=== PATIENT | female | born 1935 | race Caucasian/White ===

== ENCOUNTER 2018-09-26 07:46 | Inpatient (IN) ==
[2018-09-19 12:21] LABS: Basophils # (Auto) 0 K/mcL (0.0-0.3); Basophils % (Auto) 0.5 % (0.0-2.0); Eosinophils # (Auto) 0.1 K/mcL (0.0-0.7); Eosinophils % (Auto) 1.3 % (0.0-7.0); Granulocytes % (Auto) 62.2 % (38.0-78.0); Lymphocytes # (Auto) 1.7 K/mcL (1.5-4.8); Lymphocytes % (Auto) 27.9 % (15.5-49.0); Mean Cell Volume 93.8 fL (80.0-100.0); Mean Corpuscular HGB Conc 33.1 g/dL (31.0-36.0); Monocytes # (Auto) 0.5 K/mcL (0.1-0.9); Monocytes % (Auto) 8.1 % (1.0-12.0); Platelet Count 315 K/mcL (140-440); RBC 4.52 M/mcL (4.00-5.20); Red Cell Distribution Width 12.6 % (11.5-14.5)
[2018-09-19 13:02] LABS: Blood Urea Nitrogen 18 mg/dl (8-23)
[2018-09-19 13:15] LABS: Appearance,Urine CLEAR; Bacteria,Urine 0 /hpf (0); Bilirubin,Urine NEG (NEG); Color,Urine COLORLESS; Glucose,Urine (UA) NEGATIVE (NEG); Leukocyte Esterase,Urine NEG /uL (NEG); Protein,Urine NEG (NEG); Specific Gravity,Urine 1.005 (1.000-1.035); Urine Blood 0.03 mg/dL (<0.03); Urine Hyaline Cast 1 /lpf (0-2); Urine RBC 0 /hpf (0-1); Urine Squamous Epithelial Cell 0 /hpf (0-4); Urine WBC 0 /hpf (0-4); Urobilinogen,Urine NEG (NEG)
[~2018-09-26 07:46] MED LIST: 0.9 % SODIUM CHLORIDE 9 ML, KETOROLAC 30 MG, ROPIVACAINE HCL/PF 49.5 ML, EPINEPHrine 0.... IJ SCH; CELECOXIB 200 MG CAPSULE PO SCH; PREGABALIN 75 MG CAPSULE PO SCH; ceFAZolin 2 GM in DEXTROSE 5% IN WATER 50 ML IV SCH; oxyCODONE 10 MG TAB.ER.12H PO SCH
[2018-09-26] MEDS ORDERED: GENTAMICIN SULFATE 800 MG/20 ML VIAL IR ONE (12:08)
[2018-09-26] MEDS ORDERED: ALBUTEROL SULFATE 1 PUFF INHALER IH PRN (14:56)
--- NOTE | 2018-09-26 14:56 | Brief Operative Note ---
Date of procedure: 09/26/18 Pre-op diagnosis: left knee osteoarthritis Post-op diagnosis: same Procedure: left tka Grafts/Implants: Yes Anesthesia: spinal Complications: none Surgeon: Constantin Brunson Certified Health Education Specialist: Paty Downs Tourniquet Time (Minutes): 53 Specimens Removed/Pathology: none sent Condition: stable Disposition: PACU
[2018-09-26] MEDS ORDERED: ONDANSETRON 4 MG ODT TABLET SL PRN (14:57)
[2018-09-26] MEDS ORDERED: TRANEXAMIC ACID 1,000 MG/10 ML VIAL IV SCH (14:57)
[2018-09-26] MEDS ORDERED: MAGNESIUM HYDROXIDE 30 ML ORAL.SUSP PO PRN (14:57)
[2018-09-26] MEDS ORDERED: FLEETS ADULT ENEMA PR PRN (14:57)
[2018-09-26] MEDS ORDERED: HYDROcodone/APAP 10/325MG TABLET PO PRN (14:57)
[2018-09-26] MEDS ORDERED: POLYETHYLENE GLYCOL 3350 17 GM PACKET PO PRN (14:57)
[2018-09-26] MEDS ORDERED: ONDANSETRON 4 MG/2 ML VIAL IV PRN ×2 (14:57→15:16)
[2018-09-26] MEDS ORDERED: BENZOCAINE/MENTHOL 1 LOZENGE PO PRN (14:57)
[2018-09-26] MEDS ORDERED: BISACODYL 10 MG SUPP.RECT PR PRN (14:57)
[2018-09-26] MEDS ORDERED: NALOXONE HCL 0.4 MG/ML VIAL IV PRN (15:16)
[2018-09-26] MEDS ORDERED: fentaNYL 100 MCG/2 ML VIAL IV PRN (15:16)
[2018-09-26] MEDS ORDERED: METOPROLOL TARTRATE 5 MG/5 ML VIAL IV PRN (15:16)
[2018-09-26] MEDS ORDERED: ACETAMINOPHEN 650 MG/65 ML BOTTLE IV ONE (15:16)
[2018-09-26] MEDS ORDERED: FLUMAZENIL 0.1 MG/ML ML IV PRN (15:16)
[2018-09-26] MEDS ORDERED: ATROPINE SULFATE 0.4 MG/ML VIAL IV PRN (15:16)
[2018-09-26] MEDS ORDERED: IPRATROPIUM/ALBUTEROL 3 ML AMPUL.NEB NEB PRN (15:16)
[2018-09-26] MEDS ORDERED: ePHEDrine 50 MG/ML AMPUL IV PRN (15:16)
[2018-09-26] MEDS ORDERED: diphenhydrAMINE 50 MG/ML VIAL IV PRN (15:16)
--- NOTE | 2018-09-26 15:19 | Operative Note ---
DATE OF OPERATION: 09/26/2018 PREOPERATIVE DIAGNOSIS: Degenerative joint disease, left knee. POSTOPERATIVE DIAGNOSIS: Degenerative joint disease, left knee. PROCEDURE: Left total knee arthroplasty. SURGEON: Matheus Brunson M.D. FURNITURE SALES CONSULTANT SURGEON: Paty Downs PA-C. ANESTHESIA: Spinal with LMA assist. ESTIMATED BLOOD LOSS: 150 mL. COMPLICATIONS: None noted. SPECIMENS REMOVED: None. DRAINS: None. TOURNIQUET TIME: 52 minutes at 300 mmHg. IMPLANTS: DePuy CMW2 bone cement 20 grams x4; DePuy Attune tibial base fixed bearing size 3, cemented; DePuy Attune femoral posterior stabilized size 5 left narrow; DePuy Attune tibial insert fixed bearing posterior stabilized size 5, 6 mm AOX; DePuy Attune patella medialized dome 35 mm cemented AOX. INDICATIONS: The patient has had a long-standing history of worsening pain in the knee that has failed conservative treatment. Radiographs have confirmed advanced degenerative joint disease. After a long discussion about treatment options, the patient elected to proceed with a knee arthroplasty. The risks and benefits were discussed with the patient in detail including, but not limited to, the risks of anesthesia, problems with the heart or lungs related to anesthesia, infection, compromise or injury to the nerves and blood vessels, deep venous thrombosis, pulmonary embolism, pneumonia, continued pain after surgery, worsening pain or symptoms after surgery, swelling, loss of motion, instability, leg length discrepancy, and need for repeat surgery. DESCRIPTION OF PROCEDURE: The patient was seen in the pre-anesthesia waiting room where all questions were answered and the correct side and site were identified and marked. The patient was transferred to the operating room and administered the anesthetic and given pre-operative antibiotics. A time-out was then called. The extremity was prepped and draped, exsanguinated, and the tourniquet was inflated to 300 mmHg. A midline skin incision was then made with a standard medial parapatellar arthrotomy. Debridement of the menisci, ACL, and PCL was performed followed by balancing releases in the medial lateral plane. We then established intramedullary access to both the femur and tibia in a standard fashion. The femoral guide mami was initially placed with the distal femoral guide, pinned into place, and the distal femoral cut was performed and checked with a flat plate. We then turned our attention to the tibia. The intramedullary guide was placed with the proximal tibial cutting block. The block was appropriately positioned off the affected side, varus and valgus was checked with the extra-medullary guide, and the block was pinned into place. The proximal tibial cut was performed and the tibia was prepared for the tibial implant with appropriate rotation. The tibia, femur, and posterior compartment were debrided of osteophytes, loose bodies, and meniscal fragments We then used the gap balancing technique to balance extension with the first two cuts and good balancing was obtained with a 10 millimeter gap block. We turned our attention back to the femur and used the referencing block and implant to size appropriately. Using the gap balancing technique for the flexion space we set our rotation of the femur off the tibial cut. Anesthesia gave the patient 1 gram of Tranexamic Acid via an intravenous route. We placed the 4 in 1 cutting block and made anterior, posterior, and chamfer cuts. Box plasty cuts were then made in a standard fashion for the posterior stabilized prosthesis. We then completed osteophyte release and posterior capsule release from the posterior compartment. Trials were placed and we chose the polyethylene insert thickness that provided the best stability in all planes. With the trials in place, we did a measured resection for a resurfacing patella. We sized the patella and placed the patella trial and performed a lateral facetectomy with the saw and rongeur. Good tracking was obtained. We removed all trials, irrigated and dried all cut surfaces. We cemented the components into place including tibia, femur and patella. We placed a trial liner and held the knee in full extension with the patella compressed while the cement cured. We then removed all excess cement and placed the final polyethylene tibiofemoral component. Irrigation with 3 liters of antibiotic saline was then performed using jet-lavage. We let the tourniquet down and coagulated bleeding vessels. We injected a 100 cubic centimeter volume including Ropivacaine 49.25 cubic centimeters at 5 milligrams per cubic centimeter, Ketorolac 30 milligrams, and Epinephrine 0.5 milligrams into 100 cubic centimeters volume of normal saline. We closed the retinaculum with #2 Stratafix and 0 Vicryl. We closed the subcutaneous tissue and skin in layers out to Dermabond on the skin. A sterile pressure dressing was applied. All needle and sponge counts were correct. The patient was transferred to the recovery room in stable condition. GINETTE:gonzalo Job ID: [id number] Doc ID: [id number] Matheus Brunson MD
[2018-09-26] MEDS ORDERED: LACTATED RINGERS 1,000 ML IV SCH (15:30)
[2018-09-26] MEDS ORDERED: NITROGLYCERIN 1 GM OINT.TOP TD ONE (15:30)
--- NOTE | 2018-09-26 16:05 | General Surgery Progress Note ---
Subjective Patient reports: no new complaints Narrative: Note initiated : 09/26/18 at 4:01 pm Service Date, if different from initiated Date: [] Patient: Zhane Fernandes 82 y/o F admitted on 09/26/18 for Left Total Knee Arthroplasty. Chief Complaint: [] Pt arrives to pacu and when EKG monitors applied, significant ST depression noted. Ordered 12lead which showed new ST depression. Nitro paste applied and beta blockers given, Troponin ordered. Pt still too sleepy to assess any chest pain. Dr Brunson notified. Dr Chavez contacted as we were wanting her to be followed by hospitalist. he would appreciate a negative troponin before accepting her. Will wait in PACU for that to come back. 1600 pt awake with no complaints of chest pain and will have her chew an 81mg ASA tablet. Objective Temp Pulse Resp BP Pulse Ox 97.0 F 77 12 117/63 99 09/26/18 15:40 09/26/18 15:40 09/26/18 15:40 09/26/18 15:40 09/26/18 15:40 - Additional Data Intake & Output - Last 24 hours: Intake & Output 09/24/18 09/25/18 09/26/18 09/27/18 05:59 05:59 05:59 05:59 Intake Total 1500 Balance 1500 Weight 100 lb 6.4 oz - Labs 09/19/18 09:15 09/19/18 09:15 Assessment and Plan - Time Spent With Patient Total time spent is greater than 50% in coordination of care (as documented) at patient's floor/unit and/or counseling patient:
[2018-09-26] MEDS ORDERED: ASPIRIN 81 MG TAB.CHEW CHEWED ONE ×2 (16:11→18:15)
--- NOTE | 2018-09-26 16:55 | XRay Report ---
CLINICAL INFORMATION: Post-Op Total Knee COMPARISON: None. FINDINGS: Total knee prostheses is anatomically aligned. No osseous abnormality. Soft tissue swelling and gas - as expected IMPRESSION: Negative Interpreted and Authenticated by: Constantin Anderson 09/26/18
--- NOTE | 2018-09-26 17:56 | Internal Medicine Consult Note ---
Medical - CN: HPI - Data of Consult Consult date: 09/26/18 Primary Care Provider: Lanie Martin - Consult Narrative History of present illness: Ms. Fernandes is a 82 year old F Who presented to the hospital for elective left total knee arthroplasty for s evere osteoporosis and failed outpatient treatment. Postoperatively in the PACU patient was noted to have ST changes and an EKG was obtained. She was still sedated at that time. EKG showed anteriolateral ST depression. When she was woken up she was evaluated and it was remained stable and did not have any chest pain. A follow-up EKG showed resolution of those ischemic changes. Troponin which was ordered was unremarkable. Going through the intraoperative chart her blood pressures were pretty stable throughout, however there was one episode of 80/40. Heart rate is 70s but has visiting with her. She is resting comfortably in the MedSurg unit. We will is for her to telemetry monitoring. She denies any heart history although she does admit that her mother of [place] at 75, her father had CHF. She does date her lipids run a little high and that she has been on Lipitor in the past several decades ago but was intolerant to it. She denies trying any other statins and has not been on any other cholesterol medication since then. I discussed with her the option of trying alternative statins as she may not have a reaction to others or a different dose. She did receive aspirin in PACU. Patient denies any pains or complaints at this time no chest pain shortness of breath. Review of Systems: Pertinent positives as above. Denies headache/fever/chills/nausea/vomiting/chest or abdominal pain/cough/dyspnea/diarrhea. Remaining 10 point review of systems reviewed negative CC: Constantin Brunson Medical - CN: PMH Medical history: Past medical history: Asthma Hypertension History of Schatzki's ring Hyperlipidemia was on Lipitor 10-20 years ago but was intolerant to it and has not tried any other statins or any other cholesterol medication Past surgical history: Eye surgery and left total knee arthroplasty Family history: Mother of an [place] at 75 and father had CHF Social history: patient denies tobacco overusing Occasional alcohol Lives by herself Medical - CN: Meds Home Medications Medication Instructions Recorded Confirmed Type Irbesartan [Avapro] 300 mg PO DAILY 07/29/15 09/26/18 History Albuterol Sulfate [Proair Hfa] 8.5 gm IH Q4HP PRN 09/26/18 09/26/18 History Carboxymethylcellulose Sodium 1 - 2 drp BOTH EYES PRN PRN 09/26/18 09/26/18 History [Refresh Tears] Allergies Allergy/AdvReac Type Severity Reaction Status Date / Time hydrocodone AdvReac Intermediate Vomiting Verified 09/19/18 08:58 Bzcgrgc-Ljj-Vya Reductase AdvReac Intermediate Joint Pain Verified 09/19/18 08:59 Inhibitor Medical - CN: Exam - Constitutional Vitals: Temp Pulse Resp BP Pulse Ox 97.0 F 73 16 123/91 98 09/26/18 16:55 09/26/18 16:55 09/26/18 16:55 09/26/18 16:55 09/26/18 16:55 Exam: General: Alert, Awake, No acute Distress Eyes/N/T: EOMI, PEERL, Head/Neck: neck supple, normocephalic atraumatic CV: RRR, No murmurs, normal s1/s2 Pulm: Clear b/l, no wheezing/rhonchi/rales Abd: soft, nontender, +BS x4 Ext: no clubbing/cyanosis/edema to right leg, left leg and brace and dressings in place Neuro: Alert, no focal deficits, moves all extremities, CN 2-12 grossly intact, symmetrical strength b/l upper/lower, sensations intact b/l upper/lower Skin: warm/dry Medical - CN: Result - Labs CBC & Chem 7: 09/19/18 09:15 09/19/18 09:15 Labs: Cardiac Enzymes 09/26/18 Range/Units 15:45 Troponin T < 0.01 (0-0.03) ng/ml - Impressions Postoperative EKG with anterior lateral ST depression with a follow-up EKG with resolution. Medical - CN: A/P - Narrative A/P Narrative: A: *Ischemic EKG changes postoperatively: 2/2 demand ischemia from stress of surgery and brief episode of hypotension intraoperatively -1st trop negative -EKG changes resolved on f/u EKG *HLD: Was on Lipitor 10-20 years ago but was intolerant, has not tried any other statins or any other cholesterol medications since *HTN: On irbesartan *Asthma: Uses home inhalers as needed *OA s/p Left TKA (09/26): * P: -cont ASA -will start hydrophilic Pravastatin as least likely to cause mylagia's -check lipid panel -f/u CE's -monitor on tele -check chemistry panel -PT/OT -ppx: ASA bid per Orth O protocol
[2018-09-26 18:12] LABS: ALT/SGPT 15 U/l (0-40); Albumin 3.5 gm/dL (3.2-5.2); Albumin/Globulin Ratio 1.3 (1.0-2.3); Alkaline Phosphatase 72 U/L (39-117); Bilirubin,Direct < 0.2 mg/dL (0.0-0.3); Blood Urea Nitrogen 11 mg/dl (8-23); Gamma Glutamyl Transpeptidase 12 U/L (5-36); HDL Cholesterol 59 mg/dl (>40); LDL Cholesterol,Calculated 106 mg/dl (SEE CHART); Uric Acid 5.8 mg/dL (2.5-8.0)
[2018-09-26] MEDS: 0.9 % SODIUM CHLORIDE 1,000 ML IV SCH ×2 (19:50→23:50)
[2018-09-26] MEDS: KETOROLAC 15 MG/ML VIAL IV SCH (20:05)
[2018-09-26] MEDS ORDERED: PRAVASTATIN 20 MG TABLET PO SCH (21:00)
[2018-09-26] MEDS ORDERED: SIMVASTATIN 10 MG TABLET PO SCH (21:00)
[2018-09-26] MEDS: SENNOSIDES 1 TABLET PO SCH (21:46)
[2018-09-26] MEDS: DOCUSATE SODIUM 100 MG CAPSULE PO SCH (21:46)
[2018-09-26] MEDS: ceFAZolin 1 GM VIAL IV SCH (21:47)
[2018-09-26] MEDS: 0.9 % SODIUM CHLORIDE 10 ML SYRINGE IV SCH (21:54)
[2018-09-26] MEDS: ASPIRIN 325 MG ENTERIC COATED TABLET PO SCH (21:54)
[2018-09-27] MEDS: KETOROLAC 15 MG/ML VIAL IV SCH ×4 (01:05→17:47)
[2018-09-27] MEDS: ceFAZolin 1 GM VIAL IV SCH (04:35)
[2018-09-27 05:58] LABS: Basophils # (Auto) 0 K/mcL (0.0-0.3); Basophils % (Auto) 0 % (0.0-2.0); Eosinophils # (Auto) 0 K/mcL (0.0-0.7); Eosinophils % (Auto) 0 % (0.0-7.0); Granulocytes % (Auto) 88.9 % (38.0-78.0); Lymphocytes # (Auto) 0.8 K/mcL (1.5-4.8); Lymphocytes % (Auto) 6.4 % (15.5-49.0); Mean Corpuscular HGB Conc 32.7 g/dL (31.0-36.0); Monocytes # (Auto) 0.6 K/mcL (0.1-0.9); Monocytes % (Auto) 4.7 % (1.0-12.0); Platelet Count 294 K/mcL (140-440); RBC 3.62 M/mcL (4.00-5.20); Red Cell Distribution Width 12.7 % (11.5-14.5)
[2018-09-27] MEDS: 0.9 % SODIUM CHLORIDE 10 ML SYRINGE IV SCH ×3 (06:05→20:33)
[2018-09-27 06:11] LABS: ALT/SGPT 17 U/l (0-40); Albumin 3.3 gm/dL (3.2-5.2); Albumin/Globulin Ratio 1.2 (1.0-2.3); Alkaline Phosphatase 68 U/L (39-117); Bilirubin,Direct < 0.2 mg/dL (0.0-0.3); Blood Urea Nitrogen 14 mg/dl (8-23); Gamma Glutamyl Transpeptidase 11 U/L (5-36); Uric Acid 5.6 mg/dL (2.5-8.0)
--- NOTE | 2018-09-27 07:00 | Orthopedic Progress Note ---
Subjective Patient information: Note initiated : 09/27/18 at 6:58 am Service Date, if different from initiated Date: [] Patient: Zhane Fernandes 82 y/o F admitted on 09/26/18 for Left Total Knee Arthroplasty. Chief Complaint: [POD #1 s/p left TKA Doing well this morning, reports no pain. Denies CP, SOB, numbness, tingling or calf pain. Post surgery the patient developed ST changes on EKG but was troponin negative. She has no pertinent cardiac history and has no symptoms. ] Objective Vital signs: Vital Signs Temp Pulse Resp BP BP Pulse Ox 09/27/18 04:33 97.4 F 85 16 118/69 92 09/27/18 00:09 96.7 F L 79 16 121/72 96 09/26/18 19:10 74 150/88 97 09/26/18 18:57 97 09/26/18 18:40 74 148/84 96 09/26/18 18:11 76 139/86 96 09/26/18 17:55 75 150/85 95 09/26/18 17:41 76 142/81 95 09/26/18 17:25 75 153/86 97 09/26/18 17:10 76 148/88 94 09/26/18 16:55 97.0 F 73 16 123/91 98 09/26/18 16:40 73 18 135/69 98 09/26/18 16:25 76 20 131/99 100 09/26/18 16:10 97.1 F 69 11 L 123/61 100 09/26/18 15:55 97.0 F 68 19 122/60 100 09/26/18 15:40 97.0 F 77 12 117/63 99 09/26/18 15:25 97.2 F 73 13 117/83 98 09/26/18 15:20 89 19 118/62 100 09/26/18 15:15 92 H 19 114/60 100 09/26/18 15:10 97.0 F 90 18 111/58 100 09/26/18 07:51 98.3 F 101 H 16 146/88 98 Intake and Output 09/26/18 09/27/18 09/27/18 21:59 05:59 13:59 Intake Total 1550 300 Output Total 675 450 Balance 875 -150 Intake: Oral 300 IV - Manual Only 1550 Output: Urine Catheter Amount 675 Void Amount 450 Other: Urine Appearance Clear Clear Urine Color Dark Yellow Pale # Voids 1 Weight 112 lb Intake & Output: Intake & Output 09/26/18 09/27/18 09/27/18 21:59 05:59 13:59 Intake Total 1550 300 Output Total 675 450 Balance 875 -150 Weight 112 lb Intake: Oral 300 IV - Manual Only 1550 Output: Urine Catheter Amount 675 Void Amount 450 Other: Urine Appearance Clear Clear Urine Color Dark Yellow Pale # Voids 1 Incision: Yes healing, No draining, No red, No swollen, No inflamed, Yes clean and dry Incision clean and dry: Yes Dressing: Yes clean, Yes dry, Yes intact Weight bearing status: as tolerated Neurological exam IM: Yes alert, Yes oriented X3, Yes motor sensory intact, Yes neurovascular intact Extremities exam IM: Yes Foot pink and warm, Yes neurovascular intact - Periperhal Pulses Peripheral pulses: 2+: dorsalis pedis (L), dorsalis pedis (R), posterior tibialis (L), posterior tibialis (R) - Diagnostic Results Knee x-ray: image reviewed - Labs CBC & BMP: 09/27/18 04:15 09/27/18 04:15 Labs: Orthopedic Labs 09/19/18 09:15 PT 13.1 INR 1.0 09/27/18 09/19/18 04:15 09:15 Hgb 11.2 L 14.1 Hct 34.4 L 42.4 Assessment and Plan (1) Knee osteoarthritis POD #1 s/p left TKA: -d/c planning to SNF on Tuesday -WBAT -dermabond -october shower on 09/28/18 -pain control -ASA 325mg BID x 4 weeks -PT Status: Acute
--- NOTE | 2018-09-27 08:24 | Internal Med Progress Note ---
Medical - PN: Subj Patient information: Note initiated : 09/27/18 at 8:21 am Service Date, if different from initiated Date: [] Patient: Zhane Fernandes 82 y/o F admitted on 09/26/18 for Left Total Knee Arthroplasty. Chief Complaint: [] Interval history: Ms. Fernandes is a 82 year old F Who presented to the hospital for elective left total knee arthroplasty for severe osteoporosis and failed outpatient treatment. Postoperatively in the PACU patient was noted to have ST changes and an EKG was obtained. She was still sedated at that time. EKG showed anteriolateral ST depression. When she was woken up she was evaluated and it was remained stable and did not have any chest pain. A follow-up EKG showed resolution of those ischemic changes. Troponin which was ordered was unremarkable. Going through the intraoperative chart her blood pressures were pretty stable throughout, however there was one episode of 80/40. Heart rate is 70s but has visiting with her. She is resting comfortably in the MedSurg unit. We will is for her to telemetry monitoring. She denies any heart history although she does admit that her mother of [place] at 75, her father had CHF. She does date her lipids run a little high and that she has been on Lipitor in the past several decades ago but was intolerant to it. She denies trying any other statins and has not been on any other cholesterol medication since then. I discussed with her the option of trying alternative statins as she may not have a reaction to others or a different dose. She did receive aspirin in PACU. Patient denies any pains or complaints at this time no chest pain shortness of breath. 09/27 Slept well. No chest pain. No new complaints. Review of Systems: denies headache/fever/chills/nausea/vomiting/chest or abdominal pain/cough/dyspn ea/diarrhea. Otherwise see above. - Constitutional Vitals: Vital Signs Temp Pulse Resp BP Pulse Ox 97.4 F 75 16 118/69 92 09/27/18 04:33 09/27/18 07:00 09/27/18 04:33 09/27/18 04:33 09/27/18 04:33 Period Temp Pulse Resp BP Sys/Gary Pulse Ox Last 24 Hr 96.7 F-97.4 F 68-92 11-20 111-153/58-99 92-100 Intake and Output 09/26/18 09/27/18 09/27/18 21:59 05:59 13:59 Intake Total 1550 300 Output Total 675 450 Balance 875 -150 Weight 50.802 kg Intake & Output: Intake & Output 09/26/18 09/27/18 09/27/18 21:59 05:59 13:59 Intake Total 1550 300 Output Total 675 450 Balance 875 -150 Weight 50.802 kg Intake: Oral 300 IV - Manual Only 1550 Output: Urine Catheter Amount 675 Void Amount 450 Other: Urine Appearance Clear Clear Urine Color Dark Yellow Pale # Voids 1 Exam: General: Alert, Awake, No acute Distress Eyes/N/T: EOMI, Head/Neck: neck supple, CV: RRR, No murmurs, Pulm: Clear b/l, no wheezing/rhonchi/rales Abd: soft, nontender, +BS x4 Ext: no clubbing/cyanosis/edema to right leg, left leg and brace and dressings in place Neuro: Alert, no focal deficits, moves all extremities, Skin: warm/dry Medical - PN: Obj Da - Labs CBC & Chem 7: 09/27/18 04:15 09/27/18 04:15 Labs: Abnormal Lab Results 09/27/18 09/27/18 09/27/18 04:15 04:15 04:15 WBC 13.2 H RBC 3.62 L Hgb 11.2 L Hct 34.4 L Gran % 88.9 H Lymph % (Auto) 6.4 L Gran # 11.7 H Lymph # (Auto) 0.8 L Carbon Dioxide 20 L Anion Gap Glucose 143 H POC Glucose Calcium 8.5 L POC WB Ioniz Calcium Lactate Dehydrogenase 253 H CK-MB (CK-2) 4.5 H LDL Cholesterol, Calc 09/26/18 09/26/18 15:45 08:00 WBC RBC Hgb Hct Gran % Lymph % (Auto) Gran # Lymph # (Auto) Carbon Dioxide 18 L Anion Gap 17.0 H Glucose 138 H POC Glucose 113 H Calcium POC WB Ioniz Calcium 1.14 L Lactate Dehydrogenase 291 H CK-MB (CK-2) LDL Cholesterol, Calc 106 H Meds: Medications Hydrocodone Bitart/Acetaminophen ([place] 10/325mg) 0 tab PO Q4HP PRN PRN Reason: PAIN LEVEL 3-6 Last Admin: 09/27/18 04:41 Dose: 1 tab Documented by: Albuterol Sulfate (Ventolin) 1 - 2 puff IH Q4HP PRN PRN Reason: Shortness Of Breath Or Wheezing Aspirin (Ecotrin) 325 mg PO BID [facility] Last Admin: 09/26/18 21:54 Dose: Not Given Documented by: Bisacodyl (Dulcolax) 10 mg [place] Q2-3DAYS PRN PRN Reason: Constipation Docusate Sodium (Colace) 100 mg PO BID [facility] Last Admin: 09/26/18 21:46 Dose: 100 mg Documented by: Sodium Chloride (Sodium Chloride 0.9%) 1,000 mls @ 125 mls/hr IV .Q8H [facility] Last Admin: 09/26/18 23:50 Dose: Not Given Documented by: Ketorolac Tromethamine (Toradol) 15 mg IV Q6 [facility] Stop: 09/28/18 12:01 Last Admin: 09/27/18 06:04 Dose: 15 mg Documented by: Losartan Potassium (Cozaar) 100 mg PO DAILY [facility] Magnesium Hydroxide (Milk Of Magnesia) 30 ml PO BIDP PRN PRN Reason: Constipation Methocarbamol (Robaxin) 750 mg PO Q6HP PRN PRN Reason: Muscle Spasm Morphine Sulfate (Morphine) 0 mg IV Q1HP PRN PRN Reason: PAIN LEVEL > 6 Ondansetron HCl (Zofran) 4 mg IV Q4HP PRN PRN Reason: Nausea And Vomiting Ondansetron HCl (Zofran Odt) 4 mg SL Q4HP PRN PRN Reason: Nausea And Vomiting Polyethylene Glycol (Miralax) 17 gm PO DAILYP PRN PRN Reason: Constipation Senna (Senokot) 2 tab PO [facility] Last Admin: 09/26/18 21:46 Dose: 2 tab Documented by: Simvastatin (Zocor) 10 mg PO [facility] Last Admin: 09/26/18 21:46 Dose: 10 mg Documented by: Sodium Biphosphate/Sodium Phosphate (Fleets Adult) 1 dose [place] Q3-4DAYS PRN PRN Reason: Constipation Sodium Chloride (Saline Flush) 10 ml IV Q8 [facility] Last Admin: 09/27/18 06:05 Dose: 10 ml Documented by: Throat Lozenges (Cepacol) 1 lozenge PO PRN PRN PRN Reason: Sore Throat Medical - PN: A/P - Time Spent With Patient Total time spent is greater than 50% in coordination of care (as documented) at patient's floor/unit and/or counseling patient: - Narrative A/P Narrative: A: *Ischemic EKG changes postoperatively: 2/2 demand ischemia from stress of surgery and brief episode of hypotension intraoperatively -initial and f/u trop negative -EKG changes resolved on f/u EKG in PACU *Leukocytosis: likely reactive: afebrile, no respiratory symptoms, UA unremarkable *HLD: Was on Lipitor 10 years ago but was intolerant, has not tried any other statins or any other cholesterol medications since *HTN: On irbesartan *Asthma: Uses home inhalers as needed *OA s/p Left TKA (09/26): * P: -cont ASA -will start hydrophilic Pravastatin as least likely to cause mylagia's -monitor on tele -PT/OT -ppx: ASA bid per Orth protocol Medical - PN: Qual - VTE Deep Vein Thrombosis/Pulmonary Embolism Present on Admission: No
[2018-09-27] MEDS: 0.9 % SODIUM CHLORIDE 1,000 ML IV SCH ×3 (08:29→23:59)
[2018-09-27] MEDS: LOSARTAN 50 MG TABLET PO SCH (08:33)
[2018-09-27] MEDS: ASPIRIN 325 MG ENTERIC COATED TABLET PO SCH ×2 (08:33→20:32)
[2018-09-27] MEDS: DOCUSATE SODIUM 100 MG CAPSULE PO SCH ×2 (08:33→20:32)
[2018-09-27] MEDS: METHOCARBAMOL 750 MG TABLET PO PRN ×2 (08:52→19:51)
[2018-09-27] MEDS: traMADol 50 MG TABLET PO PRN ×2 (12:54→22:06)
[2018-09-27] MEDS ORDERED: MIDAZOLAM 2 MG/2 ML VIAL IV ONE (13:35)
[2018-09-27] MEDS ORDERED: ROPIVACAINE HCL/PF 20 ML VIAL IJ ONE (13:35)
[2018-09-27] MEDS ORDERED: DEXAMETHASONE 4 MG/ML VIAL IV ONE (13:35)
[2018-09-27] MEDS ORDERED: PROPOFOL 200 MG/20 ML VIAL IV ONE (13:35)
[2018-09-27] MEDS ORDERED: LIDOCAINE HCL/PF 100 MG/5 ML SYRINGE IV ONE (13:35)
[2018-09-27] MEDS ORDERED: TRANEXAMIC ACID 1,000 MG/10 ML VIAL IV ONE (13:35)
[2018-09-27] MEDS ORDERED: ePHEDrine 50 MG/ML AMPUL IV ONE (13:35)
[2018-09-27] MEDS ORDERED: PHENYLEPHRINE 10 MG/ML VIAL IV ONE (13:35)
[2018-09-27] MEDS: SENNOSIDES 1 TABLET PO SCH (20:32)
[2018-09-27] MEDS: PRAVASTATIN 20 MG TABLET PO SCH (20:32)
[2018-09-28 05:52] LABS: Basophils # (Auto) 0 K/mcL (0.0-0.3); Basophils % (Auto) 0.3 % (0.0-2.0); Eosinophils # (Auto) 0.1 K/mcL (0.0-0.7); Eosinophils % (Auto) 1.2 % (0.0-7.0); Granulocytes % (Auto) 69.5 % (38.0-78.0); Lymphocytes # (Auto) 1.8 K/mcL (1.5-4.8); Lymphocytes % (Auto) 21.3 % (15.5-49.0); Mean Cell Volume 94.1 fL (80.0-100.0); Mean Corpuscular HGB Conc 32.7 g/dL (31.0-36.0); Monocytes # (Auto) 0.7 K/mcL (0.1-0.9); Monocytes % (Auto) 7.7 % (1.0-12.0); Platelet Count 222 K/mcL (140-440); RBC 3.02 M/mcL (4.00-5.20); Red Cell Distribution Width 13.2 % (11.5-14.5)
[2018-09-28 05:56] LABS: Blood Urea Nitrogen 25 mg/dl (8-23)
[2018-09-28] MEDS: 0.9 % SODIUM CHLORIDE 10 ML SYRINGE IV SCH ×3 (06:05→20:40)
[2018-09-28] MEDS: KETOROLAC 15 MG/ML VIAL IV SCH ×3 (06:08→12:06)
--- NOTE | 2018-09-28 07:31 | Orthopedic Progress Note ---
Subjective Patient information: Note initiated : 09/28/18 at 7:30 am Service Date, if different from initiated Date: [] Patient: Zhane Fernandes 82 y/o F admitted on 09/26/18 for Left Total Knee Arthroplasty. Chief Complaint: [] Interval history: doing well. no complaints Objective Vital signs: Vital Signs Temp Pulse Resp BP BP Pulse Ox 09/28/18 04:06 99.2 F H 74 16 135/75 92 09/27/18 23:58 97.9 F 72 16 132/66 90 09/27/18 19:30 97.9 F 70 16 122/71 94 09/27/18 16:25 97.6 F 70 16 111/60 96 09/27/18 16:00 70 09/27/18 15:23 71 09/27/18 12:32 97.3 F 69 16 102/54 97 09/27/18 12:00 65 09/27/18 08:30 97.4 F 74 16 114/71 97 09/27/18 08:00 85 16 Intake and Output 09/27/18 09/28/18 09/28/18 21:59 05:59 13:59 Intake Total 2039 200 Output Total 675 1750 Balance 1365 -1550 Intake: Oral 2039 200 Output: Void Amount 675 1750 Other: Meal Dinner Percent of Meal Consumed 100% Feeding Ability Independent Urine Appearance Clear Clear Urine Color Dark Yellow Bright Yellow Urine Odor Normal Normal # Bowel Movements 0 Weight 120 lb Intake & Output: Intake & Output 09/27/18 09/28/18 09/28/18 21:59 05:59 13:59 Intake Total 2039 200 Output Total 675 1750 Balance 1365 -1550 Weight 120 lb Intake: Oral 2039 200 Output: Void Amount 675 1750 Other: Meal Dinner Percent of Meal Consumed 100% Feeding Ability Independent Urine Appearance Clear Clear Urine Color Dark Yellow Bright Yellow Urine Odor Normal Normal # Bowel Movements 0 Incision: Yes healing Incision clean and dry: Yes Dressing: Yes clean, Yes dry, Yes intact Weight bearing status: full Neurological exam IM: Yes alert, Yes normal gait, Yes oriented X3, Yes motor sensory intact, Yes neurovascular intact Extremities exam IM: No calf tenderness, Yes Foot pink and warm, Yes neurovascular intact - Labs CBC & BMP: 09/28/18 04:10 09/28/18 04:15 Labs: Orthopedic Labs 04/09/19 09:15 PT 13.1 INR 1.0 09/28/18 09/27/18 09/19/18 04:10 04:15 09:15 Hgb 9.3 L 11.2 L 14.1 Hct 28.4 L 34.4 L 42.4 Assessment and Plan (1) Knee osteoarthritis pod 2 s/p tka pain control dvt prophylaxis PT d/c planning - SNF tomorrow Status: Acute
--- NOTE | 2018-09-28 07:32 | Discharge Summary ---
Ortho Discharge - TKA - Patient Instructions Diet: Regular Diet Activity: ambulate with assistive device, weight bearing as tolerated Total Knee Protocol: For Total Knee: Start ROM NESTOR with stationary bike or rocking chair. Work on gaining full extension of knee. Posterior dislocation precautions provided. Hip abductor strengthening and gait training instructions provided. Apply Cryocuff as instructed. Dressing Care: May shower in 2 days - Problem Maintenance (1) Knee osteoarthritis Status: Acute - Follow Up Plan Follow Up Appointments: Paty Downs PA-C [Physician Oral Surgery Physician] - 10/11/18 10:20 am Disposition: Xfer SNF Prognosis: Good Rehab Potential: Good I certify that the patient requires SNF services: Yes Overall status at discharge: patient is progressing back to baseline - Orders For Discharge Prescriptions: Aspirin [Adult Aspirin Regimen] 81 mg PO DAILY #30 tablet. Pravastatin [Pravachol] 20 mg PO HS #30 tab
[2018-09-28] MEDS ORDERED: 0.9 % SODIUM CHLORIDE 500 ML IV STA (07:37)
--- NOTE | 2018-09-28 07:38 | Internal Med Progress Note ---
Medical - PN: Subj Patient information: Note initiated : 09/28/18 at 7:35 am Service Date, if different from initiated Date: [] Patient: Zhane Fernandes a 82 y/o F admitted on 09/26/18 for Left Total Knee Arthroplasty. Chief Complaint: [] Interval history: Ms. Fernandes is a 82 year old F Who presented to the hospital for elective left total knee arthroplasty for severe osteoporosis and failed outpatient treatment. Postoperatively in the PACU patient was noted to have ST changes and an EKG was obtained. She was still sedated at that time. EKG showed anteriolateral ST depression. When she was woken up she was evaluated and it was remained stable and did not have any chest pain. A follow-up EKG showed resolution of those ischemic changes. Troponin which was ordered was unremarkable. Going through the intraoperative chart her blood pressures were pretty stable throughout, however there was one episode of 80/40. Heart rate is 70s but has visiting with her. She is resting comfortably in the MedSurg unit. We will is for her to telemetry monitoring. She denies any heart history although she does admit that her mother of ND at 75, her father had CHF. She does date her lipids run a little high and that she has been on Lipitor in the past several decades ago but was intolerant to it. She denies trying any other statins and has not been on any other cholesterol medication since then. I discussed with her the option of trying alternative statins as she may not have a reaction to others or a different dose. She did receive aspirin in PACU. Patient denies any pains or complaints at this time no chest pain shortness of breath. 09/27 Slept well. No chest pain. No new complaints. 09/28 No overnight events. The pain controlled. Does have some an achy back. No bowel movement yet. No other new complaints. Review of Systems: denies headache/fever/chills/nausea/vomiting/chest or abdominal pain/cough/dyspnea/diarrhea. Otherwise see above. - Constitutional Vitals: Vital Signs Temp Pulse Resp BP Pulse Ox 99.2 F H 74 16 135/75 92 09/28/18 04:06 09/28/18 04:06 09/28/18 04:06 09/28/18 04:06 09/28/18 04:06 Period Temp Pulse Resp BP Sys/Gary Pulse Ox Last 24 Hr 97.3 F-99.2 F 65-85 16-16 102-135/54-75 90-97 Intake and Output 09/27/18 09/28/18 09/28/18 21:59 05:59 13:59 Intake Total 2039 200 Output Total 675 1750 Balance 1365 -1550 Weight 54.431 kg Intake & Output: Intake & Output 09/27/18 09/28/18 09/28/18 21:59 05:59 13:59 Intake Total 2039 200 Output Total 675 1750 Balance 1365 -1550 Weight 54.431 kg Intake: Oral 2039 200 Output: Void Amount 675 1750 Other: Meal Dinner Percent of Meal Consumed 100% Feeding Ability Independent Urine Appearance Clear Clear Urine Color Dark Yellow Bright Yellow Urine Odor Normal Normal # Bowel Movements 0 Exam: General: Alert, Awake, No acute Distress Eyes/N/T: EOMI, Head/Neck: neck supple, CV: RRR, No murmurs, Pulm: Clear b/l, no wheezing/rhonchi/rales Abd: soft, nontender, +BS x4 Ext: no clubbing/cyanosis/trace edema of the right leg, left leg and brace and dressings in place Neuro: Alert, no focal deficits, moves all extremities, Skin: warm/dry Medical - PN: Obj Da - Labs CBC & Chem 7: 09/28/18 04:10 09/28/18 04:15 Labs: Abnormal Lab Results 09/28/18 09/28/18 09/27/18 04:15 04:10 04:15 WBC RBC 3.02 L Hgb 9.3 L Hct 28.4 L Gran % Lymph % (Auto) Gran # Lymph # (Auto) Sodium 130 L Carbon Dioxide 20 L Anion Gap BUN 25 H Creatinine 1.2 H Glucose 143 H POC Glucose Calcium 7.9 L 8.5 L POC WB Ioniz Calcium Lactate Dehydrogenase 253 H CK-MB (CK-2) LDL Cholesterol, Calc 09/27/18 09/27/18 09/26/18 04:15 04:15 15:45 WBC 13.2 H RBC 3.62 L Hgb 11.2 L Hct 34.4 L Gran % 88.9 H Lymph % (Auto) 6.4 L Gran # 11.7 H Lymph # (Auto) 0.8 L Sodium Carbon Dioxide 18 L Anion Gap 17.0 H BUN Creatinine Glucose 138 H POC Glucose Calcium POC WB Ioniz Calcium Lactate Dehydrogenase 291 H CK-MB (CK-2) 4.5 H LDL Cholesterol, Calc 106 H 09/26/18 08:00 WBC RBC Hgb Hct Gran % Lymph % (Auto) Gran # Lymph # (Auto) Sodium Carbon Dioxide Anion Gap BUN Creatinine Glucose POC Glucose 113 H Calcium POC WB Ioniz Calcium 1.14 L Lactate Dehydrogenase CK-MB (CK-2) LDL Cholesterol, Calc Meds: Medications Albuterol Sulfate (Ventolin) 1 - 2 puff IH Q4HP PRN PRN Reason: Shortness Of Breath Or Wheezing Aspirin (Ecotrin) 325 mg PO BID [facility] Last Admin: 09/27/18 20:32 Dose: 325 mg Documented by: Bisacodyl (Dulcolax) [address] Q2-3DAYS PRN PRN Reason: Constipation Docusate Sodium (Colace) 100 mg PO BID [facility] Last Admin: 09/27/18 20:32 Dose: 100 mg Documented by: Sodium Chloride (Sodium Chloride 0.9%) 1,000 mls @ 125 mls/hr IV .Q8H [facility] Last Admin: 09/27/18 23:59 Dose: Not Given Documented by: Ketorolac Tromethamine (Toradol) 15 mg IV Q6 [facility] Stop: 09/28/18 12:01 Last Admin: 09/28/18 06:08 Dose: 15 mg Documented by: Losartan Potassium (Cozaar) 100 mg PO DAILY [facility] Last Admin: 09/27/18 08:33 Dose: 100 mg Documented by: Magnesium Hydroxide (Milk Of Magnesia) 30 ml PO BIDP PRN PRN Reason: Constipation Methocarbamol (Robaxin) 750 mg PO Q6HP PRN PRN Reason: Muscle Spasm Last Admin: 09/27/18 19:51 Dose: 750 mg Documented by: Morphine Sulfate (Morphine) 0 mg IV Q1HP PRN PRN Reason: PAIN LEVEL > 6 Ondansetron HCl (Zofran) 4 mg IV Q4HP PRN PRN Reason: Nausea And Vomiting Ondansetron HCl (Zofran Odt) 4 mg SL Q4HP PRN PRN Reason: Nausea And Vomiting Polyethylene Glycol (Miralax) 17 gm PO DAILYP PRN PRN Reason: Constipation Pravastatin Sodium (Pravachol) 20 mg PO HS [facility] Last Admin: 09/27/18 20:32 Dose: 20 mg Documented by: Ivette (Senokot) 2 tab PO [facility] Last Admin: 09/27/18 20:32 Dose: 2 tab Documented by: Sodium Biphosphate/Sodium Phosphate (Fleets Adult) [address] Q3-4DAYS PRN PRN Reason: Constipation Sodium Chloride (Saline Flush) 10 ml IV Q8 [facility] Last Admin: 09/28/18 06:05 Dose: Not Given Documented by: Throat Lozenges (Cepacol) 1 lozenge PO PRN PRN PRN Reason: Sore Throat Tramadol HCl (Ultram) 50 - 100 mg PO Q4-6HP PRN PRN Reason: Pain Last Admin: 09/27/18 22:06 Dose: 50 mg Documented by: Medical - PN: A/P - Time Spent With Patient Total time spent is greater than 50% in coordination of care (as documented) at patient's floor/unit and/or counseling patient: - Narrative A/P Narrative: A: *Ischemic EKG changes postoperatively: 2/2 demand ischemia from stress of surgery and brief episode of hypotension intraoperatively -initial and f/u trop negative -EKG changes resolved on f/u EKG in PACU *Leukocytosis: likely reactive: afebrile, no respiratory symptoms, UA unremarkable. REsolved *HLD: Was on Lipitor 10 years ago but was intolerant, has not tried any other statins or any other cholesterol medications since *HTN: On irbesartan *Asthma: Uses home inhalers as needed *OA s/p Left TKA (09/26): *hyponatremia P: -IVF's today -cont ASA -started hydrophilic Pravastatin as least likely to cause mylagia's -monitor on tele -f/u with Cardio outpt -PT/OT -ppx: ASA bid per Orth protocol Medical - PN: Qual - VTE Deep Vein Thrombosis/Pulmonary Embolism Present on Admission: No
[2018-09-28] MEDS: LOSARTAN 50 MG TABLET PO SCH (08:31)
[2018-09-28] MEDS: DOCUSATE SODIUM 100 MG CAPSULE PO SCH ×2 (08:31→20:39)
[2018-09-28] MEDS: ASPIRIN 325 MG ENTERIC COATED TABLET PO SCH ×2 (08:32→20:40)
[2018-09-28] MEDS: 0.9 % SODIUM CHLORIDE 1,000 ML IV SCH ×3 (08:46→22:36)
[2018-09-28] MEDS: traMADol 50 MG TABLET PO PRN ×3 (09:34→20:39)
[2018-09-28] MEDS: METHOCARBAMOL 750 MG TABLET PO PRN (20:39)
[2018-09-28] MEDS: SENNOSIDES 1 TABLET PO SCH (20:39)
[2018-09-28] MEDS: PRAVASTATIN 20 MG TABLET PO SCH (20:39)
[2018-09-29] MEDS: 0.9 % SODIUM CHLORIDE 10 ML SYRINGE IV SCH ×2 (05:57→06:05)
[2018-09-29] MEDS: traMADol 50 MG TABLET PO PRN (06:05)
[2018-09-29 06:08] LABS: Blood Urea Nitrogen 17 mg/dl (8-23)
--- NOTE | 2018-09-29 07:02 | Orthopedic Progress Note ---
Subjective Patient information: Note initiated : 09/29/18 at 7:02 am Service Date, if different from initiated Date: [] Patient: Zhane Fernandes 82 y/o F admitted on 09/26/18 for Left Total Knee Arthroplasty. Chief Complaint: [] Interval history: doing well. pain improving Objective Vital signs: Vital Signs Temp Pulse Resp BP Pulse Ox 09/29/18 06:50 97.9 F 16 136/73 95 09/29/18 04:51 98.1 F 81 16 134/81 93 09/29/18 00:34 97.6 F 97 H 18 125/70 92 09/28/18 19:24 97.9 F 93 H 18 137/70 94 09/28/18 16:33 97.5 F 75 16 130/74 95 09/28/18 13:17 97.3 F 77 16 135/71 95 09/28/18 12:00 70 09/28/18 08:51 97.7 F 81 16 157/79 95 09/28/18 08:00 75 16 96 Intake and Output 09/28/18 09/29/18 09/29/18 21:59 05:59 13:59 Intake Total 500 300 Output Total 1501 1000 300 Balance -1001 -700 -300 Intake: IV 500 Oral 300 Output: Void Amount 1500 1000 300 # of times incontinent of urine 1 Other: Urine Appearance Clear Clear Urine Color Bright Yellow Bright Yellow Urine Odor Normal Normal Weight 105 lb Intake & Output: Intake & Output 09/28/18 09/29/18 09/29/18 21:59 05:59 13:59 Intake Total 500 300 Output Total 1501 1000 300 Balance -1001 -700 -300 Weight 105 lb Intake: IV 500 Oral 300 Output: Void Amount 1500 1000 300 # of times incontinent of urine 1 Other: Urine Appearance Clear Clear Urine Color Bright Yellow Bright Yellow Urine Odor Normal Normal Incision: Yes healing Incision clean and dry: Yes Dressing: Yes clean, Yes dry, Yes intact Weight bearing status: full Neurological exam IM: Yes abnormal gait, Yes alert, Yes oriented X3, Yes motor sensory intact, Yes neurovascular intact Extremities exam IM: No calf tenderness, Yes Foot pink and warm, Yes neurovascular intact - Labs CBC & BMP: 09/29/18 04:50 09/29/18 04:50 Labs: Orthopedic Labs 09/19/18 09:15 PT 13.1 INR 1.0 09/29/18 09/28/18 09/27/18 04:50 04:10 04:15 Hgb 9.6 L 9.3 L 11.2 L Hct 29.1 L 28.4 L 34.4 L 09/19/18 09:15 Hgb 14.1 Hct 42.4 Assessment and Plan (1) Knee osteoarthritis pod 3 s/p tka pain control dvt prophylaxis PT d/c planning - SNF today Status: Acute
[2018-09-29] MEDS: LOSARTAN 50 MG TABLET PO SCH (08:31)
[2018-09-29] MEDS: ASPIRIN 325 MG ENTERIC COATED TABLET PO SCH (08:31)
[2018-09-29] MEDS: DOCUSATE SODIUM 100 MG CAPSULE PO SCH (08:32)
== END 2018-09-29 10:05 | DRG 470 ==
LOC: MEDSUR 07:46
PROVIDERS: ADMIT Orthopaedic Surgery Sports Medicine; ATTEND Orthopaedic Surgery Sports Medicine